=== PATIENT | male | born 2000 | race Caucasian/White ===

== ENCOUNTER → 2020-07-08 | Outpatient (CLI) | payer OTHER ==
--- NOTE | 2020-07-08 14:57 | KCIC ---
EXAMINATION: Magnetic resonance imaging (MRI) of the lumbar spine without contrast 07/08/2020 2:00 PM HISTORY: Lumbar pain with radiation down both legs TECHNIQUE: Multiplanar multi-weighted MRI of the lumbar spine was performed without intravenous contr ast using the standard lumbar spine protocol. Contrast information: None administered. COMPARISON: None available. FINDINGS: The alignment of the lumbar spine is normal. Vertebral bodies demonstrate normal signal intensity on all sequences. There are no compression fractures. The conus medullaris terminates at the level of L1. The distal spinal cord signal intensity is normal. Mild to moderate disc height loss at L5-S1 w ith mild endplate edema and annular fissure. Limited views of the abdomen and pelvis show no soft tis vinicio abnormality. The aorta is normal. L1-L2: The disc is normal in configuration. There is no facet arthropathy. There is no neuroforaminal stenosis. There is no spinal canal stenosis. L2-L3: The disc is normal in configuration. There is no facet arthropathy. There is no neuroforaminal stenosis. There is no spinal canal stenosis. L3-L4: The disc is normal in configuration. There is no facet arthropathy. There is no neuroforaminal stenosis. There is no spinal canal stenosis. L4-L5: The disc is normal in configuration. There is no facet arthropathy. There is no neuroforaminal stenosis. There is no spinal canal stenosis. L5-S1: There is a left central disc protrusion at L5-S1. Mild facet arthropathy. Mild to moderate edmundo ateral neuroforaminal stenosis. There is left lateral recess stenosis. No spinal canal stenosis. IMPRESSION: Left central disc protrusion at L5-S1 with mild to moderate bilateral neuroforaminal stenosis and lef t lateral recess stenosis. Electronically signed by: Cristy Mathews MD (07/08/2020 2:54 PM) [facility]
== END ==
LOC: KCIC MRI 13:49
PROVIDERS: ATTEND Nurse Practitioner Family
DX: M51.27 Other intervertebral disc displacement, lumbosacral region (principal); M48.07 Spinal stenosis, lumbosacral region
CPT/HCPCS: 72148

== ENCOUNTER → 2020-08-01 | Outpatient (CLI) | payer OTHER ==
[~2020-08-01] MED LIST: IOHEXOL 180 MG/ML 10 ML VIAL. ONE; methylPREDNISolone ACETATE 40 MG/ML VIAL. ONE; methylPREDNISolone ACETATE 80 MG/ML VIAL. ONE
--- NOTE | 2020-08-01 11:34 | PDOC1 ---
INITIAL PAIN CONSULT DATE OF SERVICE: DOS: DATE: 08/01/20 TIME: 11:28 HISTORY OF PRESENT ILLNESS: Low back and left greater than right lower extremity pain PAST MEDICAL HISTORY: PMH: 20-year-old male presents history of pain for about 5 years not result of any specific injury or accident that he is aware of but is increasing in pain in the low back and bilateral lower extremities worse on the left than the right but present bilaterally worse with standing walking changing position especially standing for more than 15 to 20 minutes. Patient reports the pain is constant and sharp in the back and the leg radiating the posterior gluteus posterior thigh posterior calf on the left into the posterior thigh on the right as well as the anterior lateral thigh on the left as well patient ports throbbing and shooting radiating tingling at times as well as an aching pain in the low back itself. Patient reports has had physical therapy in the past but nothing recently does exercise currently not of which helps to decrease the pain significantly patient is taking diclofenac which also has not been helpful with decreasing the pain as well. Patient has had no other modalities or treatments at this time. Patient have an MRI scan of the lumbar spine showing left central disc at L5-S1 with mild to moderate bilateral neuroforaminal stenosis and left lateral recess stenosis. Patient rates his disability rating 0-10 10 being the worst is a 10 with occupational activity 7 with family home responsibilities 8 with recreation 5 with social activity sexual Haver self-care and life support activities. Patient reports no loss of motor function no bowel or bladder incontinence. PREVIOUS SURGERIES: Past Surgical Hx: Hearing loss, dizziness CURRENT MEDICATIONS: Current Meds: Tonsillectomy at age 1 ALLERGIES; Allergies: Coded Allergies: No Known Drug Allergies (Unverified , 08/01/20) FAMILY HISTORY: Family Hx: Diabetes SOCIAL HISTORY: Social Hx: Patient does not yemi alcohol does not smoke not use any illegal illicit recre ational drugs does use chewing tobacco for the past 2 years, patient is single lives locally in [facility], and works as a machinist automotive REVIEW OF SYSTEMS: ROS: Positive for those items mentioned in history of present illness, all systems are reviewed, otherwise negative, is complete full and well-documented on patient's chart. PHYSICAL EXAM: VS: Blood pressure is 120/58 pulse 70 respirations 16 temperature 98.1 F height is 5 feet 10 inches weight 192 pounds PE: PHYSICAL EXAMINATION: GENERAL: The patient is awake, alert, oriented, appropriate, very pleasant demeanor HEENT: Shows normocephalic, atraumatic. Extraocular movements are intact and symmetrical. Oral cavity: Mucous membranes moist and pink. Dentition is intact. NECK: Shows anterior throat supple without palpable lymphadenopathy noted. Swallow reflex symmetrical. CHEST: Shows normal on inspection. Breath sounds are clear bilaterally, no rales rhonchi wheezes auscultated. HEART: Shows S1, S2 clear. No murmurs auscultated. ABDOMEN: Soft, nontender, nondistended, flat. No palpable organomegaly is noted. No rebound or guarding demonstrated. BACK: Shows spine grossly in the midline. Normal-appearing cervical lordotic curvature. There is normal appearing thoracic kyphosis, some flattening of the lumbar lordotic curvature. Lumbar paraspinous muscles show symmetrical on inspection, on palpation shows some moderate tenderness diffusely throughout the upper, middle and lower distribution of the paraspinous muscles bilaterally and also into the lower thoracic paraspinous musculature, firm and tender, but without specific trigger points, without radiation of pain. The patient has good rotational motion of the lumbar spine, both laterally as well as extension and flexion without significant difficulty. No tenderness over the spinous pro cesses, sacrum or sacroiliac regions. EXTREMITIES: Lower extremities show deep tendon reflexes 2+ in the patellar and tendo calcaneus tendons. Motor exam is 5 on a scale of 5 with right dorsiflexion, extension, quadriceps and hamstring flexion and 5/5 on the left. Peripheral pulses are 1+ posterior tibial. No peripheral edema is noted bilaterally. Lower extremities are warm and dry to touch, equal in color and appearance. Straight leg raise noted to be negative on the right, left side is positive at approximately 45 degrees decreased with knee flexion. Gaenslen's and Fernando's maneuvers are negative bilaterally. The patient is able to stand, stand on his toes without difficulty or loss of balance walks with a normal- appearing gait does not appear to favor the right left lower extremity significantly for short walk in the office. Patient not use any assistive devices such as canes or walkers. SKIN: Shows warm and dry, good turgor. No edema. No sores, rashes or bruising throughout. IMPRESSION: Impression: 20-year-old male with 5-year history low back bilateral lower extremity pain greater on the left than the right in a radicular fashion now worsening over the past 6 months or so MRI scan lumbar spine as noted Dizziness Hearing loss Plan: Options were discussed with the patient, including conservative physical therapies interventional techniques techniques and medication management. Patient like to pursue interventional techniques. We discussed a lumbar epidural steroid injection using descriptions as well as anatomical models to describe the procedure. Risks were discussed including but not limited to: Bleeding, infection, possibility of epidural hematoma and subsequent neurological compromise, dural puncture, headaches, spinal cord and/or nerve damage, side effects of steroid medication, and poor results regarding pain control. Patient understands wished to proceed. She will return to the clinic in approximate 2 weeks for follow-up was counseled as return appointment, activity level, and side effects to be aware of. Procedure is lumbar epidural steroid injection under local anesthetic using sterile prep and drape at the L5-S1 level using C-arm fluoroscopic guidance in both AP and lateral views medications injected is 120 mg Depo-Medrol + 10 mL preservative-free normal saline and 2 mL contrast- condition at discharge is stable patient tolerated procedure well had no complications. STACEY FLOWERS MD Aug 01, 2020 11:34
== END | disposition home or self-care (01) ==
LOC: PNCL 10:00
PROVIDERS: ATTEND Anesthesiology
DX: M54.5 Low back pain (principal); M79.604 Pain in right leg; Z79.899 Other long term (current) drug therapy; Z83.3 Family history of diabetes mellitus
CPT/HCPCS: 62323; J1030; J1040; Q9965